=== PATIENT | male | born 2005 | race Caucasian/White ===

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

== ENCOUNTER 2024-11-13 14:43 | Emergency (ER) | payer MEDICAID, SELFPAY ==
[2024-11-13 14:52] VITALS: BP 113/69
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
[2024-11-13 15:36] LABS: Hematocrit 41.4 % (39.0-52.0); Hemoglobin 15.3 g/dL (13.0-18.0); Mean Corp Hgb Conc. 37.0 g/dL (33.0-37.0); Mean Corpuscular Volume 85.0 fL (80.0-94.0); Platelet Count 175 10^3/uL (130-400); Red Cell Dist. Width 11.8 % (11.5-14.5)
[2024-11-13 16:10] LABS: ALT (SGPT) 13 U/L (0-50); AST (SGOT) 25 U/L (17-59); Albumin 4.8 g/dl (3.5-5.0); Alkaline Phosphatase 63 U/L (38-126); Blood Urea Nitrogen 20 mg/dl (9-20); Calcium 9.8 mg/dl (8.4-10.2); Carbon Dioxide 29 mmol/L (22-30); Chloride 104 mmol/L (98-107); Glucose 103 mg/dl (70-99); Potassium 4.4 mmol/L (3.5-5.1); Sodium 140 mmol/L (135-145); Total Protein 7.3 g/dl (6.3-8.2); eGFR > 60.00
[2024-11-13 17:00] LABS: Urine Character Clear (Clear)
[2024-11-13 20:50] LABS: Hepatitis B Surface Antigen Negative (Negative)
[2024-11-13 21:07] LABS: Hepatitis C Antibody Negative (Negative)
== END 2024-11-13 20:06 | disposition home or self-care (01) ==
LOC: EMR 14:43
PROVIDERS: EMERGENCY PHYSICIAN Emergency Medicine
DX: F84.0 Autistic disorder (principal); R82.998 Other abnormal findings in urine; G40.909 Epilepsy, unspecified, not intractable, without status epilepticus
CPT/HCPCS: 99283; 80053; 81003; 85027; 86705; 86706; 86803; 87340